=== PATIENT | female | born 1990 | race Hispanic/Latino ===

== ENCOUNTER 2021-01-15 13:07 | Emergency (ER) | payer SELFPAY ==
[2021-01-15 13:45] LABS: Urine Blood 3+ (Negative); Urine Glucose Negative (Negative); Urine Protein Negative (Negative); Urine Specific Gravity 1.025 (1.005-1.030)
[2021-01-15 14:22] LABS: Absolute Lymphocytes (CBC) 1.3 K/uL (0.7-4.9); Basophils % 0.6 % (0-1.3); Hematocrit 40.2 % (36.0-45.0); Lymphocytes % 16.3 % (15.3-44.8); MPV 10.6 fL (7.6-11.3); RBC Red Blood Cell Count 4.73 M/uL (3.86-4.86)
[2021-01-15 14:29] LABS: Urine Specific Gravity/Preg 1.025 (1.005-1.030)
[2021-01-15 14:39] LABS: BUN Blood Urea Nitrogen 11 mg/dL (7-18); Bicarbonate 25 mmol/L (21-32); Glucose Level 81 mg/dL (74-106); HCG, Quantitative 543 mIU/mL (1-3); Potassium 3.6 mmol/L (3.5-5.1); Sodium Level 140 mmol/L (136-145)
--- NOTE | 2021-01-15 16:22 | RAD REPORT ---
EXAM DESCRIPTION: US - Transvaginal OB - 01/15/2021 3:52 pm CLINICAL HISTORY: with vaginal bleeding COMPARISON: None. FINDINGS: The uterus 7 x 5 x 5 centimeters. 3 millimeter round fluid collection is present within t he endometrial stripe. The left ovary is normal in size and echotexture. Right ovary was not seen secondary to overlying bowel gas. The right and left adnexal are unremarkable. No significant free fluid IMPRESSION: 3 millimeter fluid collection within the endometrium may be a gestational sac of an shelbie y intrauterine Other considerations include an incomplete and and even a pseudo gestational sac associated with an ectopic . This all should be correlated clinically and with serial beta HCG levels. Followup endovaginal sonogram in 1 week recommended
--- NOTE | 2021-01-15 17:03 | EDPHYS ---
Physician Documentation [facility] Name: Syl Velasquez Age: 30 yrs Sex: Female : 1990 Arrival Date: 01/15/2021 Time: 13:10 Bed 7 Private MD: ED Physician Mihai Davila HPI: 01/15 13:55 This 30 yrs old Female presents to ER via Ambulatory with complaints of cp Vaginal Bleeding, + Preg <12wks. 13:55 The patient presents to the emergency department with vaginal bleeding, that is light, cp with no clots. 13:55 course: care: none, Leakage of Fluid: none appreciated, Ultrasound: cp the patient has not had an ultrasound. [employer] [employer]: 13:29 LMP 12/08/2020 tw2 13:55 2, Full Term 1, 0, Living 1, LMP 12/08/2020, Verified, EDC cp 09/14/2021, Gestational age from LMP: 5 weeks 3 days Historical: - Allergies: 13:29 No Known Allergies; tw2 - Home Meds: 13:29 None [Active]; tw2 - PMHx: 13:29 None; tw2 - Immunization history:: Adult Immunizations. - Social history:: Smoking status: Patient denies any tobacco usage or history of. ROS: 14:00 : Positive for vaginal bleeding, Negative for urinary symptoms. cp 14:00 Constitutional: Negative for body aches, chills, fever, poor PO intake. cp 14:00 Eyes: Negative for injury, pain, redness, and discharge. cp 14:00 Cardiovascular: Negative for chest pain, palpitations. 14:00 Respiratory: Negative for cough, shortness of breath, wheezing. 14:00 Abdomen/GI: Negative for abdominal pain, nausea, vomiting, and diarrhea. 14:00 Back: Negative for pain at rest, pain with movement. 14:00 Neuro: Negative for altered mental status, headache, weakness. 14:00 All other systems are negative. Exam: 14:05 Constitutional: The patient appears in no acute distress, alert, awake, comfortable, cp non-toxic, well developed, well nourished. 14:05 Head/Face: Normocephalic, atraumatic. cp 14:05 Eyes: Periorbital structures: appear normal, Conjunctiva: normal, no exudate, no injection, Sclera: no appreciated abnormality, Lids and lashes: appear normal, bilaterally. 14:05 ENT: External ear(s): are unremarkable, Nose: is normal, Mouth: Lips: moist, Oral mucosa: moist, Posterior pharynx: Airway: no evidence of obstruction, patent. 14:05 Chest/axilla: Inspection: normal, Palpation: is normal, no crepitus, no tenderness. 14:05 Cardiovascular: Rate: normal, Rhythm: regular. 14:05 Respiratory: the patient does not display signs of respiratory distress, Respirations: normal, no use of accessory muscles, no retractions, labored breathing, is not present, Breath sounds: are clear throughout, no decreased breath sounds. 14:05 Abdomen/GI: Inspection: abdomen appears normal, Bowel sounds: active, all quadrants, Palpation: abdomen is soft and non-tender, in all quadrants, rebound tenderness, is not appreciated, voluntary guarding, is not appreciated, involuntary guarding, is not appreciated. 14:05 Back: pain, is absent, ROM is normal. 14:05 Neuro: Orientation: is normal, Mentation: is normal. Vital Signs: 13:26 BP 109 / 70; Pulse 73; Resp 18; Temp 97.9; Pulse Ox 100% on R/A; Weight 61.23 kg (R); tw2 Pain 0/10; 16:00 BP 124 / 68; Pulse 70; Resp 15; Pulse Ox 99% on R/A; hb 17:00 BP 116 / 70; Pulse 64; Resp 15; Pulse Ox 99% on R/A; Pain 0/10; hb MDM: 13:38 Patient medically screened. cp 17:01 Data reviewed: vital signs, nurses notes, lab test result(s), radiologic studies, cp ultrasound. 01/15 13:46 Order name: Urine Dipstick-Ancillary; Complete Time: 13:50 EDMS 01/15 15:39 Interpretation: Normal except: UKET Trace; UBLD 3+; UESTR 1+. 01/15 13:47 Order name: Urine --Ancillary (enter results) bd 01/15 13:47 Order name: Urine --Ancillary; Complete Time: 15:00 EDMS 01/15 13:56 Order name: Quantitative Hcg; Complete Time: 15:00 01/15 15:39 Interpretation: Abnormal: HCGQ 543. 01/15 13:56 Order name: Abo/rh Typing; Complete Time: 16:50 01/15 16:50 Interpretation: Reviewed. 01/15 13:56 Order name: Basic Metabolic Panel; Complete Time: 15:00 01/15 16:36 Interpretation: Normal except: CL 110. 01/15 13:56 Order name: CBC with Diff; Complete Time: 15:00 01/15 15:39 Interpretation: Normal except: JOAQUÍN% 74.4. 01/15 13:56 Order name: IV Saline Lock; Complete Time: 14:23 01/15 13:56 Order name: Labs collected and sent; Complete Time: 14:24 01/15 13:56 Order name: NPO; Complete Time: 14:23 01/15 14:22 Order name: Labs - recollect needed: recollect abo/rh, writing smeared on band; bd Complete Time: 15:22 01/15 15:01 Order name: Transvaginal OB US; Complete Time: 16:35 cp Administered Medications: No medications were administered Disposition: 18:18 Co-signature as Attending Physician, Mihai Davila MD I agree with the assessment and kdr plan of care. Disposition: 01/15/21 17:02 Discharged to Home. Impression: Threatened . - Condition is Stable. - Discharge Instructions: Threatened Miscarriage, Vaginal Bleeding During , First Trimester, Pelvic Rest. - Prescriptions for Vitamin 27- 0.8 mg Oral Tablet - take 1 tablet by ORAL route once daily; 60 tablet. - Medication Reconciliation Form, Thank You Letter, Antibiotic Education, Prescription Opioid Use form. - Follow up: Mark Anthony Ko MD; When: 48 Hours; Reason: Repeat Beta-HCG (48 Hours), repeat ultrasound in 1 week. - Problem is new. - Symptoms are unchanged. Signatures: Dispatcher [employer] EDMS Leah De Leon Kevin, MD MD kdr Sanket Rowell PA PA cp Valerie Nolasco RN RN hb Janice Reeder RN RN tw2 Corrections: (The following items were deleted from the chart) 17:31 17:02 01/15/2021 17:02 Discharged to Home. Impression: Threatened . Condition hb is Stable. Forms are Medication Reconciliation Form, Thank You Letter, Antibiotic Education, Prescription Opioid Use. Follow up: Mark Anthony Ko; When: 48 Hours; Reason: Repeat Beta-HCG (48 Hours), repeat ultrasound in 1 week. Problem is new. Symptoms are unchanged. cp
--- NOTE | 2021-01-15 17:03 | ER ---
Nurse's Notes [facility] Name: Syl Velasquez Age: 30 yrs Sex: Female : 1990 Arrival Date: 01/15/2021 Time: 13:10 Bed 7 Private MD: Diagnosis: Threatened Presentation: 01/15 13:27 Coronavirus screen: At this time, the client does not indicate any symptoms associated tw2 with coronavirus-19. Ebola Screen: Patient denies travel to an Ebola-affected area in the 21 days before illness onset. Initial Sepsis Screen: Does the patient meet any 2 criteria? No. Patient's initial sepsis screen is negative. Does the patient have a suspected source of infection? No. Patient's initial sepsis screen is negative. Risk Assessment: Do you want to hurt yourself or someone else? Patient reports no desire to harm self or others. Onset of symptoms was January 15, 2021. 13:27 Acuity: JAMIN 3 tw2 13:27 Method Of Arrival: Ambulatory tw2 13:31 Chief complaint: Patient states: i took a test and am , but i started tw2 bleeding since , just a little bit but no cramping. this is my 2nd child. last period 12/08/2020. Triage Assessment: 13:32 General: Appears in no apparent distress. slender, well groomed, Behavior is calm, tw2 cooperative, appropriate for age. Pain: Denies pain. : Reports vaginal bleeding that is. [employer]: 13:29 LMP 12/08/2020 tw2 13:55 2, Full Term 1, 0, Living 1, LMP 12/08/2020, Verified, EDC cp 09/14/2021, Gestational age from LMP: 5 weeks 3 days Historical: - Allergies: 13:29 No Known Allergies; tw2 - Home Meds: 13:29 None [Active]; tw2 - PMHx: 13:29 None; tw2 - Immunization history:: Adult Immunizations. - Social history:: Smoking status: Patient denies any tobacco usage or history of. Screenin:45 Abuse screen: Denies threats or abuse. Denies injuries from another. Nutritional hb screening: No deficits noted. Tuberculosis screening: No symptoms or risk factors identified. Fall Risk None identified. Assessment: 13:45 General: Appears in no apparent distress. Behavior is calm, cooperative. Pain: Denies hb pain. Neuro: Level of Consciousness is awake, alert, obeys commands, Oriented to person, place, time, situation. Cardiovascular: Patient's skin is warm and dry. Respiratory: Respiratory effort is even, unlabored, Respiratory pattern is regular, symmetrical. GI: No signs and/or symptoms were reported involving the gastrointestinal system. : Reports vaginal bleeding that is. EENT: No signs and/or symptoms were reported regarding the EENT system. Derm: Skin is pink, warm \T\ dry. Musculoskeletal: No signs and/or symptoms reported regarding the musculoskeletal system. 14:30 Reassessment: Patient appears in no apparent distress at this time. Patient and/or hb family updated on plan of care and expected duration. Pain level reassessed. Patient is alert, oriented x 3, equal unlabored respirations, skin warm/dry/pink. 15:26 Reassessment: Patient appears in no apparent distress at this time. Patient and/or hb family updated on plan of care and expected duration. Pain level reassessed. Patient is alert, oriented x 3, equal unlabored respirations, skin warm/dry/pink. 16:30 Reassessment: Patient appears in no apparent distress at this time. Patient and/or hb family updated on plan of care and expected duration. Pain level reassessed. Patient is alert, oriented x 3, equal unlabored respirations, skin warm/dry/pink. 17:15 Reassessment: Patient appears in no apparent distress at this time. Patient and/or hb family updated on plan of care and expected duration. Pain level reassessed. Patient is alert, oriented x 3, equal unlabored respirations, skin warm/dry/pink. Vital Signs: 13:26 BP 109 / 70; Pulse 73; Resp 18; Temp 97.9; Pulse Ox 100% on R/A; Weight 61.23 kg (R); tw2 Pain 0/10; 16:00 BP 124 / 68; Pulse 70; Resp 15; Pulse Ox 99% on R/A; hb 17:00 BP 116 / 70; Pulse 64; Resp 15; Pulse Ox 99% on R/A; Pain 0/10; hb ED Course: 13:10 Patient arrived in ED. mr 13:27 Triage completed. tw2 13:27 Arm band placed on. tw2 13:34 Sanket Rowell PA is PHCP. cp 13:34 Mihai Davila MD is Attending Physician. cp 13:35 Valerie Nolasco, RN is Primary Nurse. hb 14:27 Urine --Ancillary (enter results) Sent. sv 14:45 Patient has correct armband on for positive identification. Bed in low position. Call hb light in reach. Side rails up X 1. 15:10 Inserted saline lock: 22 gauge in right forearm, using aseptic technique. Blood hb collected. 15:52 Transvaginal OB US In Process Unspecified. EDMS 16:59 Mark Anthony Ko MD is Referral Physician. cp 17:31 No provider procedures requiring assistance completed. IV discontinued, intact, hb bleeding controlled, No redness/swelling at site. Administered Medications: No medications were administered Outcome: 17:02 Discharge ordered by MD. cp 17:31 Discharged to home ambulatory. hb 17:31 Condition: stable 17:31 Discharge instructions given to patient, Instructed on discharge instructions, follow up and referral plans. medication usage, Demonstrated understanding of instructions, follow-up care, medications, Prescriptions given X 1. 17:31 Patient left the ED. hb Signatures: Dispatcher [employer] EDAL Miladys Santana RN RN Elke Ramos mr Sanket Rowell PA PA cp Valerie Nolasco, RN RN Janice Nielsen RN RN tw2 Corrections: (The following items were deleted from the chart) 15:26 14:30 Reassessment: Patient appears in no apparent distress at this time. Patient hb and/or family updated on plan of care and expected duration. Pain level reassessed. Patient is alert, oriented x 3, equal unlabored respirations, skin warm/dry/pink. hb
[2021-01-15 17:42] VITALS: TEMP 97.9
[2021-01-15 17:43] VITALS: O2SAT 99
[2021-01-15 17:46] VITALS: BP 116/70
== END 2021-01-15 17:31 | disposition home or self-care (01) ==
LOC: ER 13:07
DX: O20.0 Threatened abortion (principal)
CPT/HCPCS: 36415; 76817; 80048; 81003; 81025; 84702; 85025; 86900; 86901; 99284